=== PATIENT | male | born 1965 | race Caucasian/White ===

== ENCOUNTER 2023-12-13 17:03 | Emergency (ER) | payer SELFPAY ==
[2023-12-13] MEDS: Lidocaine 1% 5 ML VIAL INJECT ONE (18:07)
[2023-12-13] MEDS: Diphtheria,Pertussis(Acell),Tetanus Vaccine 0.5 ML Syringe IM ONE (18:48)
[2023-12-13] MEDS: Bacitracin Oint 1 GM U/D Packet TOP ONE (18:48)
== END 2023-12-13 18:59 | disposition home or self-care (01) ==
LOC: DL.ED 17:03
DX: S61.203A Unspecified open wound of left middle finger without damage to nail, initial encounter (principal); Z23 Encounter for immunization; W49.04XA Ring or other jewelry causing external constriction, initial encounter
CPT/HCPCS: 12001; 73120-LT; 90471; 90715; 99282; 99283-25; A9270-GY; J3490